=== PATIENT | male | born 1960 | race African-American/Black ===

== ENCOUNTER 2017-04-30 08:54 | Inpatient (IN) ==
[2017-04-30 09:30] LABS: Basophils # 0.1 10*3/uL (0.0-0.2); Basophils % 0.5 % (0.0-0.8); Eosinophils # 0.1 10*3/uL (0.0-0.87); Eosinophils % 1.3 % (0.00-10.9); Hematocrit 37.1 VOL% (42.0-52.0); Hemoglobin 12.6 GM/DL (14.0-18.0); Immature Granulocytes % 0.4 %; Immature Granulocytes Absolute 0.04 #; Lymphocytes # 2.1 10*3/uL (1.4-4.0); Mean Corpuscular Hemoglobin 28 PG (27-34); Mean Corpuscular Volume 83.2 FL (87-102); Monocytes # 0.9 10*3/uL (0.11-0.8); Monocytes % 9.5 % (1.7-12.7); Neutrophils % 65.3 % (38.7-73.9); Platelet Count 358 T/CUMM (130-400); Red Blood Count 4.46 MC/CUMM (3.8-5.5); Red Cell Distribution Width 13.3 % (9.3-17.3); White Blood Count 9.3 T/CUMM (4-12)
[2017-04-30 09:36] LABS: INR 1.4; PT Patient Result 14.7 SECS; Partial Thromboplastin Time 29.4 SECS (0-40)
[2017-04-30] MEDS ORDERED: DILTIAZEM 100 MG VIAL.ADD IV ONE (09:36)
[2017-04-30] MEDS ORDERED: DILTIAZEM 50 MG/10 ML VIAL IV ONE (09:36)
[2017-04-30] MEDS ORDERED: SODIUM CHLORIDE 0.9% 100 ML IV ONE (09:37)
[2017-04-30] MEDS ORDERED: DILTIAZEM 100 MG VIAL.ADD IV STA (09:47)
[2017-04-30] MEDS ORDERED: ENOXAPARIN 120 MG/0.8 ML SYRINGE SUBCUT STA (09:57)
[2017-04-30] MEDS ORDERED: ENOXAPARIN 120 MG/0.8 ML SYRINGE SUBCUT ONE (09:57)
[2017-04-30] MEDS ORDERED: DILTIAZEM INJ 100 MG in SODIUM CHLORIDE 0.9% 100 ML IV SCH (10:00)
[2017-04-30 10:10] LABS: Alanine Aminotransferase 29 U/L (16-61); Albumin 3.3 G/DL (3.4-5.0); Alkaline Phosphatase 74 U/L (45-117); Aspartate Amino Transferase 40 U/L (0-37); Blood Urea Nitrogen 13 MG/DL (7-18); Calcium 8.8 MG/DL (8.5-10.1); Glucose 116 MG/DL (74-106); Magnesium 1.7 MG/DL (1.8-2.4); Potassium 4.9 MMOL/L (3.5-5.1); Sodium 136 MMOL/L (136-145); Troponin I Only < 0.015 NG/ML (0.00-0.045)
[2017-04-30] MEDS: CARVEDILOL 25 MG TABLET PO SCH ×2 (13:45→21:18)
[2017-04-30 14:15] LABS: Free T4 (Free Thyroxine) 1.08 NG/DL (0.76-1.46); Thyroid Stimulating Hormone 3.71 uIU/ml (0.358-3.74)
[2017-04-30] MEDS: DILTIAZEM CD 120 MG CAPSULE PO SCH (15:26)
[2017-04-30] MEDS: FUROSEMIDE 40 MG/4 ML VIAL IV SCH (15:26)
[2017-04-30 17:59] LABS: Troponin I Only < 0.015 NG/ML (0.00-0.045)
[2017-04-30] MEDS ORDERED: CARVEDILOL 12.5 MG TABLET PO SCH (21:00)
[2017-04-30 21:12] LABS: Troponin I Only < 0.015 NG/ML (0.00-0.045)
[2017-04-30] MEDS: ENOXAPARIN 120 MG/0.8 ML SYRINGE SUBCUT SCH (21:18)
[2017-04-30] MEDS: MAGNESIUM CHLORIDE 64 MG TABLET PO SCH (21:18)
[2017-05-01 00:50] LABS: Troponin I Only < 0.015 NG/ML (0.00-0.045)
[2017-05-01 05:44] LABS: Basophils # 0.1 10*3/uL (0.0-0.2); Basophils % 0.9 % (0.0-0.8); Eosinophils # 0.3 10*3/uL (0.0-0.87); Eosinophils % 4.2 % (0.00-10.9); Hematocrit 33.6 VOL% (42.0-52.0); Hemoglobin 11.5 GM/DL (14.0-18.0); Immature Granulocytes % 0.2 %; Immature Granulocytes Absolute 0.01 #; Lymphocytes # 2.5 10*3/uL (1.4-4.0); Lymphocytes % 37.4 % (21.2-54.2); Mean Corpuscular HGB Conc 34.2 GM/DL (32-36); Mean Corpuscular Hemoglobin 28 PG (27-34); Mean Corpuscular Volume 82.8 FL (87-102); Mean Platelet Volume 10.4 FL (9.6-12.0); Monocytes # 0.8 10*3/uL (0.11-0.8); Monocytes % 12.3 % (1.7-12.7); Platelet Count 278 T/CUMM (130-400); Red Blood Count 4.06 MC/CUMM (3.8-5.5); White Blood Count 6.6 T/CUMM (4-12)
[2017-05-01 06:07] LABS: Calcium 8.7 MG/DL (8.5-10.1); Magnesium 1.8 MG/DL (1.8-2.4); Osmolality,Calculated 279.4 MOS/KG (273-304); Potassium 3.9 MMOL/L (3.5-5.1)
[2017-05-01 06:12] LABS: Risk Ratio 4.08; VLDL CHOLESTEROL 12.8 MG/DL
[2017-05-01] MEDS: FUROSEMIDE 40 MG/4 ML VIAL IV SCH (08:40)
[2017-05-01] MEDS ORDERED: DILTIAZEM CD 120 MG CAPSULE PO ONE (09:17)
[2017-05-01] MEDS: ENOXAPARIN 120 MG/0.8 ML SYRINGE SUBCUT SCH ×2 (10:12→21:02)
[2017-05-01] MEDS: LISINOPRIL 10 MG TABLET PO SCH (10:15)
[2017-05-01] MEDS: MAGNESIUM CHLORIDE 64 MG TABLET PO SCH ×2 (10:15→21:02)
[2017-05-01] MEDS: ASPIRIN EC 81 MG TABLET PO SCH (10:15)
[2017-05-01] MEDS: CARVEDILOL 25 MG TABLET PO SCH ×2 (10:16→21:02)
[2017-05-01] MEDS: FUROSEMIDE 40 MG TABLET PO SCH (15:22)
[2017-05-01] MEDS: DILTIAZEM CD 120 MG CAPSULE PO SCH (21:01)
[2017-05-02 06:44] LABS: Basophils # 0.1 10*3/uL (0.0-0.2); Eosinophils # 0.3 10*3/uL (0.0-0.87); Eosinophils % 4.3 % (0.00-10.9); Hematocrit 35.3 VOL% (42.0-52.0); Immature Granulocytes % 0.2 %; Immature Granulocytes Absolute 0.01 #; Lymphocytes # 2.3 10*3/uL (1.4-4.0); Lymphocytes % 37.8 % (21.2-54.2); Mean Corpuscular Hemoglobin 28 PG (27-34); Mean Corpuscular Volume 81.7 FL (87-102); Mean Platelet Volume 10.4 FL (9.6-12.0); Monocytes # 0.7 10*3/uL (0.11-0.8); Monocytes % 11.7 % (1.7-12.7); Neutrophils # 2.8 10*3/uL (1.4-7.4); Platelet Count 327 T/CUMM (130-400); Red Blood Count 4.32 MC/CUMM (3.8-5.5); Red Cell Distribution Width 13.1 % (9.3-17.3); White Blood Count 6.1 T/CUMM (4-12)
[2017-05-02 07:10] LABS: Calcium 8.9 MG/DL (8.5-10.1); Magnesium 1.8 MG/DL (1.8-2.4); Osmolality,Calculated 279.5 MOS/KG (273-304)
[2017-05-02] MEDS: DILTIAZEM CD 120 MG CAPSULE PO SCH ×3 (07:22→21:29)
[2017-05-02] MEDS ORDERED: RIVAROXABAN 20 MG TABLET PO SCH (08:00)
[2017-05-02] MEDS: CARVEDILOL 25 MG TABLET PO SCH ×2 (08:51→21:30)
[2017-05-02] MEDS: FUROSEMIDE 40 MG TABLET PO SCH ×2 (08:51→15:29)
[2017-05-02] MEDS: ASPIRIN EC 81 MG TABLET PO SCH (08:52)
[2017-05-02] MEDS: MAGNESIUM CHLORIDE 64 MG TABLET PO SCH ×2 (08:52→21:30)
[2017-05-02] MEDS: LISINOPRIL 10 MG TABLET PO SCH (08:52)
[2017-05-02] MEDS ORDERED: MAGNESIUM SULF RIDER 2 GM in PREMIX 1 EACH IV PRN (11:22)
[2017-05-02] MEDS ORDERED: POTASSIUM CHLORIDE RIDER 10 MEQ in PREMIX 1 EACH IV PRN (11:22)
[2017-05-02] MEDS ORDERED: ONDANSETRON 4 MG/2 ML VIAL IV PRN (13:56)
[2017-05-02] MEDS ORDERED: ZALEPLON 5 MG CAPSULE PO PRN (13:56)
[2017-05-02] MEDS ORDERED: SIMETHICONE CHEW 125 MG TABLET PO PRN (13:57)
[2017-05-02] MEDS ORDERED: POLYETHYLENE GLYCOL POWDER 17 GM PACK PO PRN (13:58)
[2017-05-02] MEDS ORDERED: ACETAMINOPHEN 325 MG TABLET PO PRN (13:58)
[2017-05-02] MEDS ORDERED: MAGNESIUM HYDROXIDE SUSP 30 ML UDCUP PO PRN (15:10)
[2017-05-02] MEDS ORDERED: ENOXAPARIN 120 MG/0.8 ML SYRINGE SUBCUT ONE (21:00)
[2017-05-03 06:30] LABS: Basophils # 0.1 10*3/uL (0.0-0.2); Basophils % 0.7 % (0.0-0.8); Eosinophils # 0.3 10*3/uL (0.0-0.87); Eosinophils % 3.8 % (0.00-10.9); Hematocrit 40.7 VOL% (42.0-52.0); Hemoglobin 13.6 GM/DL (14.0-18.0); Immature Granulocytes % 0.3 %; Immature Granulocytes Absolute 0.02 #; Lymphocytes # 2.6 10*3/uL (1.4-4.0); Mean Corpuscular HGB Conc 33.4 GM/DL (32-36); Mean Corpuscular Hemoglobin 28 PG (27-34); Mean Corpuscular Volume 83.2 FL (87-102); Mean Platelet Volume 10.1 FL (9.6-12.0); Monocytes # 0.7 10*3/uL (0.11-0.8); Monocytes % 10.7 % (1.7-12.7); Neutrophils # 3.2 10*3/uL (1.4-7.4); Neutrophils % 46.5 % (38.7-73.9); Platelet Count 362 T/CUMM (130-400); Red Blood Count 4.89 MC/CUMM (3.8-5.5); Red Cell Distribution Width 13.1 % (9.3-17.3); White Blood Count 6.9 T/CUMM (4-12)
[2017-05-03 07:03] LABS: Calcium 9.5 MG/DL (8.5-10.1); Magnesium 1.9 MG/DL (1.8-2.4); Osmolality,Calculated 278.5 MOS/KG (273-304); Potassium 4.2 MMOL/L (3.5-5.1)
[2017-05-03] MEDS: DILTIAZEM CD 120 MG CAPSULE PO SCH ×3 (07:05→21:02)
[2017-05-03] MEDS: CARVEDILOL 25 MG TABLET PO SCH ×3 (07:05→21:02)
[2017-05-03] MEDS: MAGNESIUM CHLORIDE 64 MG TABLET PO SCH ×3 (07:05→21:01)
[2017-05-03] MEDS: LISINOPRIL 10 MG TABLET PO SCH ×2 (07:05→09:06)
[2017-05-03] MEDS: ASPIRIN EC 81 MG TABLET PO SCH ×2 (07:05→09:07)
[2017-05-03] MEDS: FUROSEMIDE 40 MG TABLET PO SCH ×2 (07:16→15:20)
[2017-05-03] MEDS ORDERED: diphenhydrAMINE CAP 25 MG CAPSULE PO ONE (07:30)
[2017-05-03] MEDS ORDERED: DIAZEPAM 5 MG TABLET PO ONE (07:30)
[2017-05-03] MEDS ORDERED: MIDAZOLAM 2 MG/2 ML VIAL ONE (07:34)
[2017-05-03] MEDS ORDERED: NITROGLYCERIN DRIP 50 MG/250 ML BOTTLE IV ONE (07:34)
[2017-05-03] MEDS ORDERED: LIDOCAINE 1% 20 ML VIAL ONE (07:34)
[2017-05-03] MEDS ORDERED: VERAPAMIL 5 MG/2 ML VIAL ONE (07:35)
[2017-05-03] MEDS ORDERED: fentaNYL 100 MCG/2 ML VIAL ONE (07:35)
[2017-05-03] MEDS ORDERED: ENOXAPARIN 60 MG/0.6 ML SYRINGE ONE (07:36)
[2017-05-03] MEDS ORDERED: SODIUM CHLORIDE 0.9% 1,000 ML IV SCH (08:30)
[2017-05-04 06:18] LABS: Basophils # 0.1 10*3/uL (0.0-0.2); Basophils % 0.8 % (0.0-0.8); Eosinophils # 0.3 10*3/uL (0.0-0.87); Eosinophils % 3.9 % (0.00-10.9); Hematocrit 35.8 VOL% (42.0-52.0); Hemoglobin 12.1 GM/DL (14.0-18.0); Immature Granulocytes % 0.3 %; Immature Granulocytes Absolute 0.02 #; Lymphocytes # 2.7 10*3/uL (1.4-4.0); Lymphocytes % 33.8 % (21.2-54.2); Mean Corpuscular HGB Conc 33.8 GM/DL (32-36); Mean Corpuscular Hemoglobin 28 PG (27-34); Mean Corpuscular Volume 82.7 FL (87-102); Mean Platelet Volume 10.6 FL (9.6-12.0); Monocytes # 0.9 10*3/uL (0.11-0.8); Monocytes % 11.2 % (1.7-12.7); Platelet Count 341 T/CUMM (130-400); Red Blood Count 4.33 MC/CUMM (3.8-5.5); Red Cell Distribution Width 13.1 % (9.3-17.3); White Blood Count 7.9 T/CUMM (4-12)
[2017-05-04 06:56] LABS: Calcium 8.5 MG/DL (8.5-10.1); Magnesium 1.8 MG/DL (1.8-2.4); Osmolality,Calculated 274.7 MOS/KG (273-304); Potassium 4.4 MMOL/L (3.5-5.1)
[2017-05-04] MEDS: CARVEDILOL 25 MG TABLET PO SCH (09:07)
[2017-05-04] MEDS: MAGNESIUM CHLORIDE 64 MG TABLET PO SCH (09:07)
[2017-05-04] MEDS: FUROSEMIDE 40 MG TABLET PO SCH (09:07)
[2017-05-04] MEDS: ASPIRIN EC 81 MG TABLET PO SCH (09:07)
[2017-05-04] MEDS: DILTIAZEM CD 120 MG CAPSULE PO SCH (09:08)
[2017-05-04] MEDS: LISINOPRIL 10 MG TABLET PO SCH (09:08)
[2017-05-04 12:00] VITALS: BP 122/81
== END 2017-05-04 13:32 | disposition home or self-care (01) | DRG 286 ==
LOC: N.ED 08:54 → N.EDINP 10:28 → SUATTDRO 10:28 → N.EDINP 10:50 → N.TELEN 11:12
PROVIDERS: ADMIT Nurse Practitioner Family; ATTEND Internal Medicine Cardiovascular Disease
PROC: CLCCHCL (ICD-10-PCS; 2017-05-03 07:45)

== ENCOUNTER 2019-01-23 05:49 | Observation (INO) ==
[2019-01-23 07:08] LABS: Basophils % 0.7 % (0.0-0.8); Eosinophils # 0.2 10*3/uL (0.0-0.87); Eosinophils % 3.6 % (0.00-10.9); Hematocrit 40.5 VOL% (42.0-52.0); Immature Granulocytes % 0.2 %; Immature Granulocytes Absolute 0.01 #; Lymphocytes # 2.7 10*3/uL (1.4-4.0); Lymphocytes % 47.2 % (21.2-54.2); Mean Corpuscular HGB Conc 32.1 GM/DL (32-36); Mean Corpuscular Volume 86.2 FL (87-102); Mean Platelet Volume 10.2 FL (9.6-12.0); Monocytes % 12.8 % (1.7-12.7); Neutrophils % 35.5 % (38.7-73.9); Platelet Count 295 T/CUMM (130-400); Red Cell Distribution Width 12.4 % (9.3-17.3); White Blood Count 5.8 T/CUMM (4-12)
[2019-01-23 07:30] LABS: Calcium 9.2 MG/DL (8.5-10.1); Osmolality,Calculated 281.5 MOS/KG (273-304)
[2019-01-23 07:33] LABS: Eosinophils 5 % (0-10); Lymphocytes 48 % (20-55); Nucleated Red Blood Cells 1 (0-5); Segmented Neutrophils 38 % (50-85); Total Cells Counted 100
[2019-01-23 07:38] LABS: Hypochromasia 1+; Platelet Estimate Adequate
[2019-01-23] MEDS ORDERED: POTASSIUM CHLORIDE RIDER 10 MEQ in PREMIX 1 EACH IV ONE (08:15)
[2019-01-23] MEDS ORDERED: MAGNESIUM SULF RIDER 2 GM in PREMIX 1 EACH IV ONE (08:16)
[2019-01-23] MEDS ORDERED: MAGNESIUM SULF RIDER 0 ML IV ONE (08:29)
[2019-01-23] MEDS ORDERED: POTASSIUM CHLORIDE RIDER 0 ML IV ONE (08:29)
[2019-01-23] MEDS ORDERED: ISOPROTERENOL 1 MG/5 ML VIAL IV ONE (08:32)
[2019-01-23] MEDS ORDERED: HEPARIN DRIP 25,000 UNITS/500 ML PREMIX IV ONE (08:32)
[2019-01-23] MEDS ORDERED: HEPARIN/NACL 0.9% 2 UNITS/ML 1,000 ML IV ONE (08:32)
[2019-01-23] MEDS ORDERED: LIDOCAINE 1% 20 ML VIAL ONE (08:32)
[2019-01-23] MEDS ORDERED: HEPARIN/NACL 0.9% 2 UNITS/ML 2,000 ML IV ONE (08:32)
[2019-01-23] MEDS ORDERED: SODIUM CHLORIDE 0.9% 1,000 ML IV SCH (09:00)
[2019-01-23] MEDS ORDERED: PHENYLEPHRINE 50 MG/5 ML VIAL ONE (09:27)
[2019-01-23] MEDS ORDERED: ONDANSETRON 4 MG/2 ML VIAL IV PRN (13:53)
[2019-01-23] MEDS ORDERED: ASPIRIN EC 325 MG TABLET PO ONE (13:53)
[2019-01-23] MEDS ORDERED: GLUCAGON 1 MG VIAL IM PRN (13:53)
[2019-01-23] MEDS ORDERED: DEXTROSE 50% 25 GM/50 ML VIAL IV PRN (13:53)
[2019-01-23] MEDS ORDERED: ZALEPLON 5 MG CAPSULE PO PRN (13:53)
[2019-01-23] MEDS ORDERED: ACETAMINOPHEN 325 MG TABLET PO PRN (13:53)
[2019-01-23] MEDS ORDERED: HEPARIN/NACL 0.9% 2 UNITS/ML 500 ML IV ONE (13:57)
[2019-01-23] MEDS ORDERED: fentaNYL 100 MCG/2 ML VIAL ONE (14:00)
[2019-01-23] MEDS ORDERED: PHENYLEPHRINE 1 MG/10 ML SYRINGE IV ONE (14:00)
[2019-01-23] MEDS ORDERED: MIDAZOLAM 2 MG/2 ML VIAL ONE (14:01)
[2019-01-23] MEDS ORDERED: POTASSIUM CHLORIDE RIDER 100 ML IV ONE (14:01)
[2019-01-23] MEDS ORDERED: ETOMIDATE 20 MG/10 ML VIAL IV ONE (14:01)
[2019-01-23] MEDS ORDERED: MAGNESIUM SULF RIDER 50 ML IV ONE (14:02)
[2019-01-23] MEDS ORDERED: PROPOFOL 200 MG/20 ML VIAL IV ONE (14:02)
[2019-01-23] MEDS ORDERED: NOREPINEPHRINE 4 MG/4 ML VIAL IV ONE (14:10)
[2019-01-23] MEDS ORDERED: POTASSIUM CHLORIDE 20 MEQ TABLET PO SCH (15:00)
[2019-01-23] MEDS ORDERED: SODIUM CHLORIDE 0.9% 250 ML IV ONE (15:07)
[2019-01-23] MEDS ORDERED: EPINEPHrine 1 MG/ML VIAL ONE (15:07)
[2019-01-23] MEDS: MORPHINE 4 MG/1 ML VIAL IV PRN (16:47)
[2019-01-23] MEDS: RIVAROXABAN 20 MG TABLET PO SCH (16:54)
[2019-01-23] MEDS: MAGNESIUM CHLORIDE 64 MG TABLET PO SCH ×2 (16:54→21:29)
[2019-01-23] MEDS: PANTOPRAZOLE 40 MG TABLET PO SCH ×2 (16:54→21:29)
[2019-01-23] MEDS ORDERED: NOREPINEPHRINE 8 MG in SODIUM CHLORIDE 0.9% 242 ML IV PRN (17:15)
[2019-01-23] MEDS: FUROSEMIDE 80 MG TABLET PO SCH (18:30)
[2019-01-23] MEDS ORDERED: CARVEDILOL 25 MG TABLET PO SCH (21:00)
[2019-01-23] MEDS: COLCHICINE 0.6 MG CAPSULE PO PRN (21:29)
[2019-01-24 04:47] LABS: Basophils % 0.2 % (0.0-0.8); Eosinophils # 0.1 10*3/uL (0.0-0.87); Eosinophils % 1.1 % (0.00-10.9); Hematocrit 35.1 VOL% (42.0-52.0); Hemoglobin 11.4 GM/DL (14.0-18.0); Immature Granulocytes % 0.3 %; Immature Granulocytes Absolute 0.03 #; Lymphocytes # 2.3 10*3/uL (1.4-4.0); Lymphocytes % 24.8 % (21.2-54.2); Mean Corpuscular HGB Conc 32.5 GM/DL (32-36); Mean Corpuscular Volume 85.6 FL (87-102); Mean Platelet Volume 10.5 FL (9.6-12.0); Monocytes % 12.6 % (1.7-12.7); Platelet Count 247 T/CUMM (130-400); Red Cell Distribution Width 12.6 % (9.3-17.3); White Blood Count 9.4 T/CUMM (4-12)
[2019-01-24 05:15] LABS: Osmolality,Calculated 275.8 MOS/KG (273-304)
[2019-01-24] MEDS ORDERED: MAGNESIUM SULF RIDER 2 GM in PREMIX 1 EACH IV ONE (07:29)
[2019-01-24] MEDS: MAGNESIUM CHLORIDE 64 MG TABLET PO SCH ×3 (08:39→22:55)
[2019-01-24] MEDS: PANTOPRAZOLE 40 MG TABLET PO SCH ×2 (08:39→22:55)
[2019-01-24] MEDS: CARVEDILOL 12.5 MG TABLET PO SCH ×2 (08:40→22:55)
[2019-01-24] MEDS: POTASSIUM CHLORIDE 20 MEQ TABLET PO SCH ×2 (08:40→22:55)
[2019-01-24] MEDS: metOLazone 5 MG TABLET PO SCH (08:40)
[2019-01-24] MEDS: LOSARTAN 50 MG TABLET PO SCH (08:41)
[2019-01-24] MEDS: ASPIRIN EC 81 MG TABLET PO SCH (08:41)
[2019-01-24] MEDS: COLCHICINE 0.6 MG CAPSULE PO PRN (08:41)
[2019-01-24] MEDS: FUROSEMIDE 40 MG TABLET PO SCH (08:42)
[2019-01-24] MEDS: MORPHINE 4 MG/1 ML VIAL IV PRN ×2 (10:45→22:56)
[2019-01-24] MEDS: IBUPROFEN 400 MG TABLET PO PRN ×2 (13:40→22:55)
[2019-01-24] MEDS: RIVAROXABAN 20 MG TABLET PO SCH (16:59)
[2019-01-24] MEDS: FUROSEMIDE 80 MG TABLET PO SCH (18:02)
[2019-01-25 04:49] LABS: Calcium 8.5 MG/DL (8.5-10.1)
[2019-01-25] MEDS: ASPIRIN EC 81 MG TABLET PO SCH (08:54)
[2019-01-25] MEDS: metOLazone 5 MG TABLET PO SCH (08:54)
[2019-01-25] MEDS: LOSARTAN 50 MG TABLET PO SCH (08:54)
[2019-01-25] MEDS: MAGNESIUM CHLORIDE 64 MG TABLET PO SCH ×3 (08:54→21:37)
[2019-01-25] MEDS: CARVEDILOL 12.5 MG TABLET PO SCH ×2 (08:54→21:36)
[2019-01-25] MEDS: PANTOPRAZOLE 40 MG TABLET PO SCH ×2 (08:54→21:37)
[2019-01-25] MEDS: FUROSEMIDE 40 MG TABLET PO SCH (08:54)
[2019-01-25] MEDS: POTASSIUM CHLORIDE 20 MEQ TABLET PO SCH ×2 (08:55→21:37)
[2019-01-25] MEDS: IBUPROFEN 400 MG TABLET PO PRN ×2 (11:15→21:37)
[2019-01-25] MEDS: SPIRONOLACTONE 25 MG TABLET PO SCH ×2 (12:58→13:50)
[2019-01-25] MEDS: predniSONE 20 MG TABLET PO SCH ×2 (12:58→13:50)
[2019-01-25] MEDS: FUROSEMIDE 80 MG TABLET PO SCH ×2 (16:09→18:38)
[2019-01-25] MEDS: RIVAROXABAN 20 MG TABLET PO SCH (16:10)
[2019-01-26] MEDS: POTASSIUM CHLORIDE 20 MEQ TABLET PO SCH (08:36)
[2019-01-26] MEDS: LOSARTAN 50 MG TABLET PO SCH (08:36)
[2019-01-26] MEDS: PANTOPRAZOLE 40 MG TABLET PO SCH (08:36)
[2019-01-26] MEDS: SPIRONOLACTONE 25 MG TABLET PO SCH (08:37)
[2019-01-26] MEDS: FUROSEMIDE 40 MG TABLET PO SCH (08:37)
[2019-01-26] MEDS: predniSONE 20 MG TABLET PO SCH (08:37)
[2019-01-26] MEDS: CARVEDILOL 12.5 MG TABLET PO SCH (08:37)
[2019-01-26] MEDS: MAGNESIUM CHLORIDE 64 MG TABLET PO SCH (08:37)
[2019-01-26] MEDS: ASPIRIN EC 81 MG TABLET PO SCH (08:38)
[2019-01-26] MEDS: metOLazone 5 MG TABLET PO SCH (08:38)
[2019-01-26 12:07] VITALS: BP 108/81
[2019-01-30] MEDS ORDERED: CHOLECALCIFEROL 5,000 UNIT TABLET PO SCH (09:00)
== END 2019-01-26 13:20 | disposition home or self-care (01) ==
LOC: N.CL 05:49 → N.CC 14:39 → INTOOBSV 01-24 08:43 → N.CC 01-24 08:43 → N.TELEN 01-24 12:31
PROVIDERS: ADMIT Internal Medicine Clinical Cardiac Electrophysiology; ATTEND Internal Medicine Clinical Cardiac Electrophysiology

== ENCOUNTER 2019-05-25 20:14 | Observation (INO) ==
[2019-05-25] MEDS ORDERED: ALBUTEROL/IPRATROPIUM 3 ML NEB RESP TX STA (20:53)
[2019-05-25 21:07] LABS: White Blood Count 7.1 T/CUMM (4-12)
[2019-05-25 21:08] LABS: Basophils % 0.4 % (0.0-0.8); Eosinophils % 0.4 % (0.00-10.9); Hematocrit 42.9 VOL% (42.0-52.0); Hemoglobin 13.9 GM/DL (14.0-18.0); Immature Granulocytes % 0.3 %; Immature Granulocytes Absolute 0.02 #; Lymphocytes # 1.7 10*3/uL (1.4-4.0); Lymphocytes % 24.4 % (21.2-54.2); Mean Corpuscular HGB Conc 32.4 GM/DL (32-36); Mean Platelet Volume 11.3 FL (9.6-12.0); Monocytes % 15.3 % (1.7-12.7); Neutrophils % 59.2 % (38.7-73.9); Platelet Count 192 T/CUMM (130-400); Red Blood Count 4.99 MC/CUMM (3.8-5.5); Red Cell Distribution Width 15.2 % (9.3-17.3)
[2019-05-25 21:11] LABS: INR 1.9; PT Patient Result 20.9 SECS (9.6-12.2)
[2019-05-25 21:18] LABS: Albumin 3.7 G/DL (3.4-5.0); Bilirubin,Total 0.6 MG/DL (0.2-1.0); Osmolality,Calculated 279.1 MOS/KG (273-304); Total Protein 8.1 G/DL (6.4-8.3)
[2019-05-25] MEDS ORDERED: LEVOFLOXACIN INJ 100 ML IV ONE (21:36)
[2019-05-25] MEDS ORDERED: LEVOFLOXACIN INJ 500 MG in PREMIX 1 EACH IV STA (21:39)
[2019-05-25] MEDS ORDERED: NICOTINE 21 MG/24 HR PATCH TRANSDERM PRN (22:17)
[2019-05-25] MEDS ORDERED: ONDANSETRON 4 MG/2 ML VIAL IV PRN (22:17)
[2019-05-25] MEDS ORDERED: ACETAMINOPHEN 325 MG TABLET PO PRN (22:17)
[2019-05-25] MEDS ORDERED: BISACODYL 5 MG TABLET PO PRN (22:17)
[2019-05-25] MEDS ORDERED: ZALEPLON 5 MG CAPSULE PO PRN (22:17)
[2019-05-25] MEDS ORDERED: diphenhydrAMINE CAP 25 MG CAPSULE PO PRN (22:17)
[2019-05-25] MEDS ORDERED: guaiFENesin/DM ER 600-30 MG TABLET PO PRN (22:17)
[2019-05-25] MEDS ORDERED: MORPHINE 4 MG/1 ML VIAL IV PRN (22:17)
[2019-05-25] MEDS ORDERED: LEVOFLOXACIN INJ 500 MG in PREMIX 1 EACH IV SCH (22:30)
[2019-05-26] MEDS: LEVALBUTEROL 1.25 MG/3 ML NEB RESP TX SCH ×2 (01:02→08:17)
[2019-05-26] MEDS ORDERED: FUROSEMIDE 40 MG/4 ML VIAL IV ONE (01:31)
[2019-05-26] MEDS: methylPREDNISolone SOD SUC 40 MG/1 ML VIAL IV SCH ×2 (04:20→16:53)
[2019-05-26] MEDS ORDERED: FUROSEMIDE 40 MG/4 ML VIAL IV SCH (08:00)
[2019-05-26] MEDS: RIVAROXABAN 20 MG TABLET PO SCH (09:15)
[2019-05-26] MEDS ORDERED: COLCHICINE 0.6 MG CAPSULE PO PRN (10:31)
[2019-05-26] MEDS ORDERED: metOLazone 5 MG TABLET PO SCH (11:00)
[2019-05-26] MEDS: carvediloL 25 MG TABLET PO SCH ×2 (12:33→22:33)
[2019-05-26] MEDS: DILTIAZEM CD 120 MG CAPSULE PO SCH (12:34)
[2019-05-26] MEDS: POTASSIUM CHLORIDE 10 MEQ TABLET PO SCH (12:34)
[2019-05-26] MEDS: FUROSEMIDE 40 MG TABLET PO SCH (12:34)
[2019-05-26] MEDS: ALBUTEROL/IPRATROPIUM 3 ML NEB RESP TX SCH ×2 (12:51→19:12)
[2019-05-26] MEDS: MAGNESIUM CHLORIDE 64 MG TABLET PO SCH ×2 (15:44→22:33)
[2019-05-26] MEDS ORDERED: LEVOFLOXACIN INJ 500 MG in PREMIX 1 EACH IV SCH (21:00)
[2019-05-27] MEDS: ALBUTEROL/IPRATROPIUM 3 ML NEB RESP TX SCH ×2 (01:18→07:40)
[2019-05-27] MEDS: methylPREDNISolone SOD SUC 40 MG/1 ML VIAL IV SCH (04:51)
[2019-05-27 06:23] LABS: Hematocrit 39.8 VOL% (42.0-52.0); Hemoglobin 13.5 GM/DL (14.0-18.0); Immature Granulocytes % 0.4 %; Immature Granulocytes Absolute 0.03 #; Lymphocytes # 1.7 10*3/uL (1.4-4.0); Lymphocytes % 20.8 % (21.2-54.2); Mean Corpuscular HGB Conc 33.9 GM/DL (32-36); Mean Corpuscular Volume 84.5 FL (87-102); Mean Platelet Volume 10.6 FL (9.6-12.0); Monocytes % 5.3 % (1.7-12.7); Neutrophils % 73.5 % (38.7-73.9); Platelet Count 197 T/CUMM (130-400); Red Blood Count 4.71 MC/CUMM (3.8-5.5); Red Cell Distribution Width 14.4 % (9.3-17.3); White Blood Count 8.3 T/CUMM (4-12)
[2019-05-27 06:42] LABS: Osmolality,Calculated 284.4 MOS/KG (273-304)
[2019-05-27] MEDS: MAGNESIUM CHLORIDE 64 MG TABLET PO SCH (09:41)
[2019-05-27] MEDS: DILTIAZEM CD 120 MG CAPSULE PO SCH (09:42)
[2019-05-27] MEDS: POTASSIUM CHLORIDE 10 MEQ TABLET PO SCH (09:42)
[2019-05-27] MEDS: RIVAROXABAN 20 MG TABLET PO SCH (09:43)
[2019-05-27] MEDS: carvediloL 25 MG TABLET PO SCH (09:43)
[2019-05-27] MEDS: FUROSEMIDE 40 MG TABLET PO SCH (09:51)
[2019-05-27 09:57] VITALS: BP 121/69
[2019-06-01] MEDS ORDERED: CHOLECALCIFEROL 5,000 UNIT TABLET PO SCH (09:00)
== END 2019-05-27 12:35 | disposition home or self-care (01) ==
LOC: N.EDINP 20:14 → N.ED 20:14 → SUPCPDRO 22:17 → N.5E 05-26 00:22
PROVIDERS: ADMIT Hospitalist; ATTEND Hospitalist